=== PATIENT | female | born 1955 | race African-American/Black ===

== ENCOUNTER 2024-09-20 17:28 | Emergency (ER) | payer MEDICARE ==
[~2024-09-20] VITALS: Ht 160 cm; Wt 82.0 kg
[2024-09-20 19:02] VITALS: O2SAT 98
[2024-09-20 22:46] VITALS: TEMP 98.2
[2024-09-20] MEDS: IBUPROFEN 400MG TABLET PO ONE (22:46)
[2024-09-20] MEDS: ACETAMINOPHEN 325MG TABLET PO ONE (22:46)
[2024-09-20 23:35] VITALS: BP 145/79; PULSE 82; RESP 16; O2SAT 99
== END 2024-09-20 23:50 | disposition home or self-care (01) ==
LOC: ER 17:28
DX: S93.402A Sprain of unspecified ligament of left ankle, initial encounter (principal); E78.00 Pure hypercholesterolemia, unspecified; E11.9 Type 2 diabetes mellitus without complications; I10 Essential (primary) hypertension; X58.XXXA Exposure to other specified factors, initial encounter; Y93.89 Activity, other specified; Y92.89 Other specified places as the place of occurrence of the external cause; Y99.8 Other external cause status
CPT/HCPCS: 73600; 99283